=== PATIENT | male | born 1995 | race Caucasian/White ===

== ENCOUNTER 2017-05-07 22:50 | Emergency (ER) | payer OTHER ==
[2017-05-07 23:01] VITALS: BP 145/76; PULSE 99; O2SAT 95
[2017-05-07] MEDS ORDERED: Rocephin 1000 MG INJ IM ONE (23:07)
[2017-05-07] MEDS ORDERED: TORAdol 30 mg Injection IM ONE (23:07)
--- NOTE | 2017-05-07 23:12 | ERPHSYRPT ---
- History of Present Illness Time Seen by Provider: 05/07/17 23:03 Source: patient Patient Subjective Stated Complaint: PT STATES HE BEGAN HAVING DENTAL PAIN TODAY THAT HAS PERSISTED AND NOW HAS SWELLING TO THE FACE.REPORTS HIS PAIN RADIATES UP TO HIS EYE AND DOWN TO THE JAW ON THE LEFT SIDE. STATES HE HAD A DENTIST APPOINTMENT LAST WEEK BUT HAD TO CANCEL DUE TO HIS WORK SCHEDULE. STATES THE ISSUE IS WITH A LEFT UPPER MOLAR. REPORTS THE TOOTH WAS SCHEDULED TO BE EXTRACTED AT THAT TIME. Triage Nursing Assessment: PT IS AOX3, RESPS ARE EASY AND NON LABORED, SKIN IS PWD, PULSES ARE STRONG AND EQUAL. SWELLING NOTED TO THE LEFT FACE. Physician History: 22-year-old white male arrives with complaint of swelling in the left maxillary area pain in the left maxillary tooth symptoms since today. Patient states he has a tooth in the left maxillary area which has been seen by a dentist and he was told that it needed to be extracted the patient apparently has had an appointment in the past but canceled because of work. He has the above noted complaints. He has no fevers no vomiting at home. Past medical history includes asthma and ulcers. Past surgical history is negative. Social history positive for tobacco use.Patient denies illicit drug or alcohol use. Timing/Duration: today Severity: moderate Modifying Factors: Improves With: nothing Associated Symptoms: other (facial pain, swelling maxillary area), No nausea, No vomiting, No abdominal pain, No shortness of breath, No heartburn, No diaphoresis, No cough, No chills, No chest pain, No fever, No headaches, No loss of appetite, No malaise, No rash, No syncope, No seizure, No weakness Allergies/Adverse Reactions: No Known Drug Allergies Allergy (Verified 05/07/17 23:01) Home Medications: Clonazepam [Klonopin] 2 mg PO BID 05/07/17 [History] Paroxetine HCl [Paxil] 10 mg PO DAILY 05/07/17 [History] Hx Tetanus, Diphtheria Vaccination/Date Given: Yes Hx Influenza Vaccination/Date Given: No Hx Pneumococcal Vaccination/Date Given: No Immunizations Up to Date: Yes - Review of Systems Constitutional: No Fever, No Chills Eyes: No Symptoms Ears, Nose, & Throat: Mouth Pain, Mouth Swelling, Other (dental pain left maxillary area), No Ear Pain, No Ear Discharge, No Hearing Changes, No Tinnitus , No Nose Pain, No Nose Congestion, No Nose Discharge, No Sinus Drainage, No Epistaxis, No Loose Teeth, No Throat Pain, No Throat Swelling, No Hoarse, No Painful Swallowing, No Snoring, No Stridor Respiratory: No Cough, No Dyspnea Cardiac: No Chest Pain, No Edema, No Syncope Abdominal/Gastrointestinal: No Abdominal Pain, No Nausea, No Vomiting, No Diarrhea Genitourinary Symptoms: No Dysuria Musculoskeletal: No Back Pain, No Neck Pain Skin: No Rash Neurological: No Dizziness, No Focal Weakness, No Sensory Changes Psychological: No Symptoms Endocrine: No Symptoms All Other Systems: Reviewed and Negative - Past Medical History Pertinent Past Medical History: Yes Respiratory History: Asthma GI Medical History: Ulcer - Past Surgical History Past Surgical History: No - Social History Smoking Status: Current every day smoker How long have you smoked: 3 Exposure to second hand smoke: No Drug Use: none Patient Lives Alone: No - Nursing Vital Signs Nursing Vital Signs: Initial Vital Signs Temperature 99.2 F Temperature Source Oral Pulse Rate 99 Respiratory Rate 18 Blood Pressure [Right Arm] 145/76 Pain Intensity 8 - Physical Exam General Appearance: mild distress, other (well-developed well-nourished [place] mild edema left maxillary area tender with palpation) Eye Exam: PERRL/EOMI, eyes nml inspection Ears, Nose, Throat Exam: TMs normal, pharynx normal, moist mucous membranes, other (patient with carious tooth left lateral maxillary area patient with edema adjacent to thisarea tender with palpation) Neck Exam: normal inspection, non-tender, supple, full range of motion Respiratory Exam: normal breath sounds, lungs clear, No respiratory distress Cardiovascular Exam: regular rate/rhythm, normal heart sounds, normal peripheral pulses Gastrointestinal/Abdomen Exam: soft, normal bowel sounds, No tenderness, No mass Back Exam: normal inspection, normal range of motion, No CVA tenderness, No vertebral tenderness Extremity Exam: normal inspection, normal range of motion, pelvis stable Neurologic Exam: alert, oriented x 3, cooperative, normal mood/affect, nml cerebellar function, nml station & gait, sensation nml, No motor deficits Skin Exam: normal color, warm, dry, No rash Lymphatic Exam: No adenopathy SpO2 Interpretation: normal (95%) SpO2: 95 Oxygen Delivery: Room Air - Course Nursing assessment & vital signs reviewed: Yes Ordered Tests: Medication Summary Discontinued Medications Generic Name Dose Route Start Last Admin Trade Name Josefina PRN Reason Stop Dose Admin Ceftriaxone Sodium 1,000 mg 05/07/17 23:07 Rocephin 1000 Mg Inj IM 05/07/17 23:08 STAT ONE Ceftriaxone Sodium Confirm 05/07/17 23:15 Rocephin 1000 Mg Inj Administered 05/07/17 23:16 Dose 1,000 mg .ROUTE .STK-MED ONE Ketorolac Tromethamine 60 mg 05/07/17 23:07 Toradol 30 Mg Injection IM 05/07/17 23:08 STAT ONE Ketorolac Tromethamine Confirm 05/07/17 23:15 Toradol 30 Mg Injection Administered 05/07/17 23:16 Dose 60 mg .ROUTE .STK-MED ONE - Progress Progress: improved Progress Note: 05/07/17 23:13 This is a 22-year-old white male with history of asthma and ulcers. He arrives with complaint of facial swelling left maxillary region symptoms since today he has dental pain in the left maxillary area laterally. He is tender with palpation overlying the swelling in his left maxillary area. Patient has a carious tooth in the left lateral maxillary area corresponding to the area of pain and edema. Patient has seen a dentist in the past and had an appointment for possible extraction however he was unable to keep this appointment. Will go ahead and give patient Toradol for pain in the emergency room Rocephin 1 g IM. Will plan home with clindamycin and Iva. Patient will be advised to take ibuprofen as well. Patient's inspect report has been reviewed there does not appear to be any significant narcotic use. Patient denies any problems with illicit substances. Patient was strongly advised to follow-up with his dentist. - Departure Time of Disposition: 23:15 Departure Disposition: Home Clinical Impression: Pain, dental, Dental caries, Dental abscess Condition: Fair Critical Care Time: No Instructions: Tooth Abscess, Tooth Decay Additional Instructions: Return home. Cold packs to area 24-48 hours (external) Clindamycin 300 mg orally 3 times a day for 10 days Iva 5/325 #12 one orally every 4-6 hours as needed for pain. Advil ([id number]) 2-3 tablets every 6 hours with food as needed for pain for 5 days. Follow-up with your dentist . Call in the morning and make an appointment. Stop smoking. Return for acute distress or for severe symptoms. Prescriptions: Clindamycin HCl [Cleocin HCl] 300 mg PO TID #30 capsule Hydrocodone/Acetaminophen [Iva 5-325 Tablet] 1 tab PO Q4-6HPRN PRN #12 tablet PRN Reason: Pain
[2017-05-07] MEDS ORDERED: Rocephin 1000 MG INJ ONE (23:15)
[2017-05-07] MEDS ORDERED: TORAdol 30 mg Injection ONE (23:15)
[2017-05-07] MEDS ORDERED: NORCO 5/325 MG PO ONE (23:23)
[2017-05-07] MEDS ORDERED: NORCO 5/325 MG ONE (23:29)
[2017-05-07] MEDS ORDERED: XYLOCAINE 1% HCL 20 ML MDV ONE (23:30)
== END 2017-05-07 23:45 | disposition home or self-care (01) ==
LOC: ED 22:50
DX: K02.9 Dental caries, unspecified (principal); K04.7 Periapical abscess without sinus
CPT/HCPCS: 96372; 99283; 99284; J0696; J1885; A9270-GY

== ENCOUNTER 2019-04-13 15:58 | Emergency (ER) | payer MEDICAID, OTHER ==
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
[2019-04-13 16:49] LABS: Appearance SLIGHTLY CLOUDY (CLEAR); Bacteria RARE /HPF (NEGATIVE); Bilirubin NEGATIVE (NEGATIVE); Blood NEGATIVE Ery/ul (0-5); Glucose NEGATIVE (NEGATIVE); Ketones NEGATIVE (NEGATIVE); Leukocyte Esterase NEGATIVE (NEGATIVE); Mucus SLIGHT /HPF (NEGATIVE); Nitrite NEGATIVE (NEGATIVE); Protein,Urine Dip NEGATIVE (Negative); Specific Gravity 1.021 (1.005-1.025); Urobilinogen NEGATIVE mg/dL (0-1)
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
[2019-04-13] MEDS ORDERED: Cyclobenzaprine 10 MG PO ONE (17:37)
[2019-04-13] MEDS ORDERED: PERCOCET TABLET 5/325MG PO STA (17:37)
[2019-04-13] MEDS ORDERED: KEFLEX 500 MG PO ONE (17:44)
[2019-04-13] MEDS ORDERED: KEFLEX 500 MG ONE (17:47)
[2019-04-13] MEDS ORDERED: Cyclobenzaprine 10 MG ONE (17:47)
[2019-04-13] MEDS ORDERED: PERCOCET TABLET 5/325MG ONE (17:47)
[2019-04-13 18:20] VITALS: BP 111/48; PULSE 59; O2SAT 97
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
== END 2019-04-13 18:19 | disposition home or self-care (01) ==
LOC: ED 15:58
DX: S30.0XXA Contusion of lower back and pelvis, initial encounter (principal); M54.5 Low back pain; M62.830 Muscle spasm of back; W19.XXXA Unspecified fall, initial encounter
CPT/HCPCS: 74176; 76376; 81001; 99284; A9270-GY

== ENCOUNTER 2020-04-27 20:25 | Emergency (ER) | payer MEDICAID, OTHER ==
[2020-04-27] MEDS ORDERED: Fluor-I-Strip/Ful-Flo OP ONE ×3 (20:41→20:48)
[2020-04-27] MEDS ORDERED: TETRACAINE 0.5% STERI-UNIT SOL OP ONE ×2 (20:41→20:47)
[2020-04-27] MEDS ORDERED: TETRACAINE 0.5% STERI-UNIT SOL OP STA (20:41)
[2020-04-27] MEDS ORDERED: Eye-Stream Solution ONE (20:41)
[2020-04-27] MEDS ORDERED: MORPHINE SULFATE 2 MG INJ IV ONE (20:53)
[2020-04-27] MEDS ORDERED: Levofloxacin 500MG/100ML D5W 500 MG/100 ML BAG IV STA (20:56)
[2020-04-27] MEDS ORDERED: MORPHINE SULFATE 2 MG INJ ONE (21:04)
[2020-04-27 21:05] LABS: Absolute Neutrophil Ct (ANC) 4.41 (1.4-6.9); BASOPHIL % 0.2 % (0.0-0.4); Basophil (Absolute #) 0.02 (0-0.4); Eosinophil % 1.6 % (0.00-5.0); Eosinophil (Absolute #) 0.13 (0-0.5); Hematocrit 47.5 % (42-50); Hemoglobin 16.4 gm/dl (12.5-18.0); Lymphocyte (Absolute #) 2.96 (1.0-4.6); Lymphocytes % 35.7 % (24.0-44.0); Mean Cell Volume 85.6 fl (78-100); Mean Corpuscular Hemoglobin 29.5 pg (26-32); Mean Corpuscular Hgb Concent. 34.5 g/dl (32-36); Mean Platelet Volume 10.3 fl (7.5-11.0); Monocyte (Absolute #) 0.77 (0.0-1.3); Monocytes % 9.3 % (0.0-12.0); Neutrophil % 53.2 % (36.0-66.0); Platelet Count 220 K/mm3 (150-450); Red Blood Count 5.55 M/mm3 (4.1-5.6); Red Cell Distribution Width 13.1 % (11.5-14.0); White Blood Count 8.3 K/mm3 (4.0-10.5)
[2020-04-27] MEDS ORDERED: Levofloxacin 500MG/100ML D5W 500 MG/100 ML BAG IV ONE (21:05)
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
[2020-04-27 21:16] LABS: ALBUMIN 4.6 g/dL (3.5-5.0); ALKALINE PHOSPHATASE 82 U/L (38-126); ANION GAP 11.9 MEQ/L (5-15); BLOOD UREA NITROGEN 15 mg/dL (9-20); CHLORIDE 108 mmol/L (98-107); Calcium 9.4 mg/dL (8.4-10.2); Carbon Dioxide 25 mmol/L (22-30); Creatinine 1 0.95 mg/dL (0.66-1.25); Glucose 102 mg/dL (74-106); Potassium 3.5 mmol/L (3.5-5.1); SGOT/AST 40 U/L (17-59); SGPT/ALT 47 U/L (0-50); SODIUM 141 mmol/L (137-145); Total Protein 7.5 g/dL (6.3-8.2)
[2020-04-27 21:37] VITALS: BP 139/88; PULSE 74
[2020-04-27 21:50] LABS: Amphetamine,Urine NEGATIVE (NEGATIVE); Barbiturate,Urine NEGATIVE (NEGATIVE); Benzodiazepine,Urine NEGATIVE (NEGATIVE); Cocaine,Urine NEGATIVE (NEGATIVE); Methadone,Urine NEGATIVE (NEGATIVE); Opiate,Urine NEGATIVE (NEGATIVE); PCP,Urine NEGATIVE (NEGATIVE); THC,Urine NEGATIVE (NEGATIVE)
[2020-04-27 21:51] VITALS: O2SAT 95
[2020-04-27] MEDS ORDERED: Sodium Chloride 0.9% 1000 ML 1,000 ML IV STA (21:51)
[2020-04-27] MEDS ORDERED: Sodium Chloride 0.9% 1000 ML 1,000 ML ONE (21:51)
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
== END 2020-04-27 22:10 | disposition short-term general hospital (02) ==
LOC: ED 20:25
DX: T26.32XA Burns of other specified parts of left eye and adnexa, initial encounter (principal); W39.XXXA Discharge of firework, initial encounter; Y93.89 Activity, other specified; Y92.89 Other specified places as the place of occurrence of the external cause
CPT/HCPCS: 36000; 36415; 70480; 80053; 80307; 85025; 96360; 96365; 96374; 99285; 99291; J1956; J2270; A9270-GY; G0480

== ENCOUNTER 2022-12-12 19:45 | Emergency (ER) | payer OTHER ==
[2022-12-12 19:53] VITALS: O2SAT 94
[2022-12-12] MEDS ORDERED: TORAdol 30 mg Injection IM ONE (20:13)
[2022-12-12] MEDS ORDERED: Augmentin 875-125 Tablet PO ONE (20:13)
[2022-12-12] MEDS ORDERED: Augmentin 875-125 Tablet ONE (20:16)
[2022-12-12] MEDS ORDERED: TORAdol 30 mg Injection ONE (20:16)
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
[2022-12-12 20:32] VITALS: BP 121/80; PULSE 76
== END 2022-12-12 20:35 | disposition home or self-care (01) ==
LOC: ED 19:45
DX: K04.7 Periapical abscess without sinus (principal); K08.89 Other specified disorders of teeth and supporting structures; R22.0 Localized swelling, mass and lump, head; Z79.899 Other long term (current) drug therapy; Z28.310 Unvaccinated for COVID-19; Z72.0 Tobacco use
CPT/HCPCS: 96372; 99283; J1885; A9270-GY